=== PATIENT | female | born 2000 | race Caucasian/White ===

== ENCOUNTER 2023-04-02 00:06 | Emergency (ER) | payer MEDICAID, SELFPAY ==
[2023-04-02 00:10] VITALS: BP 116/74; PULSE 92; RESP 18; TEMP 36.6; O2SAT 100; BMI 23.2
[2023-04-02 03:20] VITALS: BP 113/72; PULSE 69; RESP 17; TEMP 36.9; O2SAT 96
--- NOTE | 2023-04-02 03:22 | PC.NURSE ---
Pt a&o, denies any sob or chest pain, pt injured her back cheer leading, took 800mg of Tylenol. pt given a warm pack. pt awaiting to be seen by provider.
--- NOTE | 2023-04-02 04:36 | PC.NURSE ---
pt no longer wanted to wait for provider, discussed the importance of waiting to be seen, pt refuse and left home.
== END 2023-04-02 04:37 | disposition left against medical advice (07) ==
PROVIDERS: Emergency Provider Emergency Medicine
DX: S29.9XXA Unspecified injury of thorax, initial encounter (principal); X50.1XXA Overexertion from prolonged static or awkward postures, initial encounter; Y93.45 Activity, cheerleading; Y92.9 Unspecified place or not applicable; Y99.9 Unspecified external cause status
CPT/HCPCS: 99283; 99284